=== PATIENT | female | born 1960 | race Hispanic/Latino ===

== ENCOUNTER 2019-04-19 06:19 | Emergency (ER) | payer OTHER ==
[~2019-04-19] VITALS: Ht 152.4 cm; Wt 72.6 kg
--- NOTE | 2019-04-19 06:24 | NUR ---
ED Nurse Note: Patient brought in by RA son 27[address] with complaints of full body pain acute onset x couple of hours ago. Patient states she has stabbing chest pain. LAFD EKG, negative. Patient connected to school bus monitor and ERMD at bedside. Will continue to monitor for future orders.
[2019-04-19 06:25] VITALS: BP 117/80
[2019-04-19] MEDS ORDERED: Mylanta II UD 30ml ORAL ONE (06:30)
[2019-04-19] MEDS ORDERED: Metoclopramide 10mg/2ml Inj IVP ONE (06:30)
[2019-04-19] MEDS ORDERED: DiphenhydrAMINE 50mg/ml Inj IVP ONE (06:30)
--- NOTE | 2019-04-19 06:32 | Emergency Room Report ---
History of Present Illness General Chief Complaint: General Complaint Source: Patient Present Illness HPI The patient presents with 1 hour of stabbing tearing chest pain on the left- hand side. Began suddenly. Paramedics transported the patient after performing EKG. EKG was normal in the field. She has a h/o gastritis. The pain is rated 12/10, epigastric and in her L chest - pressure and burning. No cough, fever, chills, vomiting, melena. No calf pain or edema. Patient was recently treated for an infection in the right lower leg. Allergies: Coded Allergies: No Known Allergies (Unverified , 04/19/19) Patient History Past Medical History: see triage record Social History: Reports: drug use; Denies: smoking Social History Narrative homeless Reviewed Nursing Documentation: PMH: Agreed; PSxH: Agreed Nursing Documentation-PMH Past Medical History: No History, Except For Review of Systems All Other Systems: negative except mentioned in HPI Physical Exam Vital Signs Date Time Temp Pulse Resp B/P (MAP) Pulse Ox O2 Delivery O2 Flow Rate FiO2 04/19/19 06:17 97.9 82 16 117/80 (92) 99 Room Air Sp02 EP Interpretation: reviewed, normal General Appearance: well appearing, GCS 15, non-toxic, mild distress Head: normocephalic, atraumatic Eyes: bilateral eye normal inspection, bilateral eye PERRL, bilateral eye EOMI ENT: moist mucus membranes Neck: supple Respiratory: chest non-tender, lungs clear, normal breath sounds Cardiovascular #1: regular rate, rhythm Cardiovascular #2: 2+ radial (R) Gastrointestinal: normal inspection, normal bowel sounds, no mass, non- distended, no guarding, no rebound, tenderness - epigastric Genitourinary: no CVA tenderness Musculoskeletal: back normal, gait/station normal, normal range of motion, no calf tenderness Neurologic: alert, oriented x3, grossly normal Psychiatric: anxious Skin: no rash, warm/dry Medical Decision Making Homeless Attestation I, The treating physician Dr. Powers, have assessed and agree that patient is medically stable for discharge to an outpatient disposition. Diagnostic Impression: Primary Impression: Chest pain Qualified Codes: R07.89 - Other chest pain Additional Impressions: Substance abuse Anemia Qualified Codes: D64.9 - Anemia, unspecified Bleeding hemorrhoids ER Course Patient presents with sharp chest pain history of gastritis. Differential includes acute myocardial infarction, pulmonary embolus, gastritis, reflux esophagitis, chest wall pain, pneumothorax amongst others. Patient evaluated with EKG, chest x-ray and labs. Patient will be treated with Reglan, Benadryl, Pepcid, Mylanta. The patient is also placed on a campus monitor. EKG normal sinus rhythm rate 76 prolonged QT of 495. Chest x-ray unremarkable. Labs significant for normal white count, anemia and normal CMP. Troponin negative. CK minimally elevated. Urine tox positive for amphetamine and cocaine. Patient sleeping after initial medications. Discussed findings with patient. Also discussed the need for outpatient follow up. Suggested 12-step. She understands. No medical emergency at this time. Patient stable for outpatient observation and follow up. At discharge, some bright red blood per rectum. Hemorrhoids present. Bleeding stopped. Laboratory Tests Test 04/19/19 07:10 04/19/19 07:48 White Blood Count 4.4 K/UL (4.8-10.8) L Red Blood Count 3.26 M/UL (4.20-5.40) L Hemoglobin 9.3 G/DL (12.0-16.0) L Hematocrit 28.1 % (37.0-47.0) L Mean Corpuscular Volume 86 FL (80-99) Mean Corpuscular Hemoglobin 28.6 PG (27.0-31.0) Mean Corpuscular Hemoglobin Concent 33.2 G/DL (32.0-36.0) Red Cell Distribution Width 14.0 % (11.6-14.8) Platelet Count 250 K/UL (150-450) Mean Platelet Volume 5.3 FL (6.5-10.1) L Neutrophils (%) (Auto) 64.6 % (45.0-75.0) Lymphocytes (%) (Auto) 23.7 % (20.0-45.0) Monocytes (%) (Auto) 8.2 % (1.0-10.0) Eosinophils (%) (Auto) 2.2 % (0.0-3.0) Basophils (%) (Auto) 1.3 % (0.0-2.0) Prothrombin Time 10.5 SEC (9.30-11.50) Prothrombin Time INR 1.0 (0.9-1.1) PTT 26 SEC (23-33) Sodium Level 138 MMOL/L (136-145) Potassium Level 4.3 MMOL/L (3.5-5.1) Chloride Level 101 MMOL/L (98-107) Carbon Dioxide Level 26 MMOL/L (21-32) Anion Gap 12 mmol/L (5-15) Blood Urea Nitrogen 24 mg/dL (7-18) H Creatinine 0.7 MG/DL (0.55-1.30) Estimate Glomerular Filtration Rate > 60 mL/min (>60) Glucose Level 78 MG/DL (74-106) Calcium Level 9.1 MG/DL (8.5-10.1) Total Bilirubin 0.7 MG/DL (0.2-1.0) Aspartate Amino Transferase (AST) 34 U/L (15-37) Alanine Aminotransferase (ALT) 28 U/L (12-78) Alkaline Phosphatase 94 U/L (46-116) Total Creatine Kinase 343 U/L (26-308) H Troponin I 0.000 ng/mL (0.000-0.056) Pro-B-Type Natriuretic Peptide 139 pg/mL (0-125) H Total Protein 8.8 G/DL (6.4-8.2) H Albumin 4.3 G/DL (3.4-5.0) Globulin 4.5 g/dL Albumin/Globulin Ratio 1.0 (1.0-2.7) Urine Color Yellow Urine Appearance Clear Urine pH 5 (4.5-8.0) Urine Specific [place] 1.025 (1.005-1.035) Urine Protein 2+ (NEGATIVE) H Urine Glucose (UA) Negative (NEGATIVE) Urine Ketones 1+ (NEGATIVE) H Urine Blood Negative (NEGATIVE) Urine Nitrite Negative (NEGATIVE) Urine Bilirubin Negative (NEGATIVE) Urine Urobilinogen Normal MG/DL (0.0-1.0) Urine Leukocyte Esterase 1+ (NEGATIVE) H Urine RBC 0 /HPF (0 - 2) Urine WBC 0-2 /HPF (0 - 2) Urine Squamous Epithelial Cells Few /LPF (NONE/OCC) Urine Bacteria Occasional /HPF (NONE) Urine Opiates Screen Negative (NEGATIVE) Urine Barbiturates Screen Negative (NEGATIVE) Phencyclidine (PCP) Screen Negative (NEGATIVE) Urine Amphetamines Screen Positive (NEGATIVE) H Urine Benzodiazepines Screen Negative (NEGATIVE) Urine Cocaine Screen Positive (NEGATIVE) H Urine Marijuana (THC) Screen Negative (NEGATIVE) EKG Diagnostic Results Rate: normal Rhythm: NSR ST Segments: no acute changes - Prolonged QT Rhythm Strip Diag. Results Rhythm: NSR, no PVC's, no ectopy Chest X-Ray Diagnostic Results Chest X-Ray Diagnostic Results : Chest X-Ray Ordered: Yes # of Views/Limited/Complete: 1 View Indication: Chest Pain Interpretation: no consolidation, no effusion, no pneumothorax Impression: No acute disease Electronically Signed by: Electronically signed by Mitul Powers MD Last Vital Signs Date Time Temp Pulse Resp B/P (MAP) Pulse Ox O2 Delivery O2 Flow Rate FiO2 04/19/19 09:16 97.9 82 16 105/72 98 Room Air Status: improved Disposition: HOME, SELF-CARE Condition: Improved Scripts Acetaminophen (Tylenol) 325 Mg Tablet 650 MG ORAL Q6H PRN for Prn Pain/Headache/Temp > 101, #20 TAB 0 Refills Prov: Mitul Powers MD 04/19/19 Mag Hydrox/Al Hydrox/Simeth (MAALOX MAXIMUM STRENGTH SUSP) 355 Ml Oral.susp 30 ML PO DAILY, #240 ML Prov: Mitul Powers MD 04/19/19 Famotidine* (Pepcid 20mg tablet*) 20 Mg Tablet 20 MG ORAL DAILY, #30 TAB 0 Refills Prov: Mitul Powers MD 04/19/19 Mitul Powers MD Apr 19, 2019 06:32
--- NOTE | 2019-04-19 07:10 | NUR ---
ED Nurse Note: Received patient in bed, patient is alert awake, on a monitoring coordinator, vitals stable. blood sent to lab.
[2019-04-19 07:18] VITALS: BP 117/69
[2019-04-19 07:24] LABS: BASOPHILS % (AUTO) 1.3 % (0.0-2.0); EOSINOPHILS % (AUTO) 2.2 % (0.0-3.0); HEMATOCRIT 28.1 % (37.0-47.0); HEMOGLOBIN 9.3 G/DL (12.0-16.0); LYMPHOCYTES % (AUTO) 23.7 % (20.0-45.0); MEAN CORPUSCULAR VOLUME 86 FL (80-99); MONOCYTES % (AUTO) 8.2 % (1.0-10.0); NEUTROPHILS % (AUTO) 64.6 % (45.0-75.0); PLATELET COUNT 250 K/UL (150-450); RED BLOOD COUNT 3.26 M/UL (4.20-5.40); WHITE BLOOD COUNT 4.4 K/UL (4.8-10.8)
[2019-04-19 07:40] LABS: ANION GAP 12 mmol/L (5-15); BLOOD UREA NITROGEN 24 mg/dL (7-18); CALCIUM 9.1 MG/DL (8.5-10.1); CARBON DIOXIDE 26 MMOL/L (21-32); CHLORIDE 101 MMOL/L (98-107); CREATININE 0.7 MG/DL (0.55-1.30); POTASSIUM 4.3 MMOL/L (3.5-5.1); SODIUM 138 MMOL/L (136-145)
--- NOTE | 2019-04-19 07:55 | NUR ---
ED Nurse Note: urine send to lab.
[2019-04-19 07:56] LABS: ALANINE AMINOTRANSFERASE 28 U/L (12-78); ALBUMIN 4.3 G/DL (3.4-5.0); ALKALINE PHOSPHATASE 94 U/L (46-116); ASPARTATE AMINO TRANSFERASE 34 U/L (15-37); BILIRUBIN,TOTAL 0.7 MG/DL (0.2-1.0); CREATINE KINASE 343 U/L (26-308)
[2019-04-19 07:58] LABS: APPEARANCE,URINE CLEAR; BILIRUBIN, URINE NEGATIVE (NEGATIVE); GLUCOSE, URINE (UA) NEGATIVE (NEGATIVE); KETONES,URINE 1+ (NEGATIVE); LEUKOCYTE ESTERASE ,URINE 1+ (NEGATIVE); NITRITE,URINE NEGATIVE (NEGATIVE); PH,URINE 5 (4.5-8.0); PROTEIN,URINE 2+ (NEGATIVE); UROBILINOGEN,URINE NORMAL MG/DL (0.0-1.0)
[2019-04-19 08:07] LABS: COLOR,URINE YELLOW
[2019-04-19] MEDS ORDERED: FAMOTIDINE20 MG ORAL (08:22)
[2019-04-19] MEDS ORDERED: MAALOX MAXIMUM355 M1 PO (08:22)
[2019-04-19] MEDS ORDERED: TYLENOL325 MG ORAL (08:22)
--- NOTE | 2019-04-19 08:43 | NUR ---
ED Nurse Note: spoke with newton Brantley at [facility], they received prescriptions, will call back after verification.
[2019-04-19 08:50] VITALS: BP 105/72
--- NOTE | 2019-04-19 09:12 | NUR ---
Homeless Discharge: Patient is being discharged from medical care, cleared for discharge by Dr. Powers. Also Dr. Powers aware that patient c/o hemorrhoids and scant amount of bleeding from that site. patient is awake, alert and oriented x4. After care instructions, including referral to community resources were given. medication to be picked up from [facility] by our office technology instructor and delivered directly to the patient. Patient verbalized understanding of After care instructions; patient has weather appropriate clothings but per patient's request, provided with pants and shoes, patient refused to put shoes on (patient has total of 2 shoes at this time) because she says socks is more comfortable for her. patient provided with bandages for her feet, no open skin or swelling noted. patient provided with cane to assist her gait, patient is ambulatory by herself steady gait. All medical devices such as IV and ID band were removed without complication. Patient ambulated out with all personal belongings. sanitary pads and disposable underwears provided as requested. patient provided with sandwiches, water, and juice. patient provided with bus tokens.
[2019-04-19 09:16] VITALS: BP 105/72
--- NOTE | 2019-04-19 14:20 | Diagnostic Imaging Report ---
Indication: Dyspnea Comparison: None A single view chest radiograph was obtained. Findings: No definite infiltrate or pulmonary vascular congestion identified. The heart is normal size. The aorta is mildly enlarged consistent with atherosclerotic vascular disease. The bones are osteopenic. Impression: No acute disease
== END 2019-04-19 09:11 | disposition home or self-care (01) ==
LOC: EDBD 06:19 → EMR 07:00
DX: R07.89 Other chest pain (principal); D64.9 Anemia, unspecified; K64.9 Unspecified hemorrhoids; F19.10 Other psychoactive substance abuse, uncomplicated; R07.9 Chest pain, unspecified
CPT/HCPCS: 36415; 71045; 80053; 80307; 81003; 82550; 83880; 84484; 85025; 85610; 85730; 93005; 96374; 96375; J1200; J2765; S0028; Z7502; 99284